=== PATIENT | female | born 1955 | race Caucasian/White ===

== ENCOUNTER → 2018-02-09 | Outpatient (CLI) | payer MEDICARE ==
[~2018-02-09] MED LIST: ALENDRONATE SOD70 MG PO; BIOTIN2500 MCG PO; FOLIC ACID1 MG PO; METHOTREXATE2.5 MG SC; NAPROXEN250 MG PO; NORCO 7.5-3251 EACH PO; NORTRIPTYLINE H25 MG PO; PAROXETINE HCL20 MG PO; PREDNISONE5 MG PO; VITAMIN D400 UNI1 PO
--- NOTE | 2018-02-09 09:58 | Diagnostic Imaging Report ---
PROCEDURE:C-SPINE FLEX AND EXT COMPARISON:None. INDICATIONS:NECK PAIN, LEFT ARM NUMBNESS FINDINGS: The cervical spine is visualized from the skull base to the top of T1 on the lateral radiograph. No acute displaced fracture or subluxation. Soft tissue, ligamentous, and spinal cord abnormalities cannot be excluded on the basis of plain radiography. No inducible malalignment on flexion or extension views. Moderate left C5-6 foraminal narrowing on the oblique radiographs. Disc space narrowing and disc osteophyte complexes at C5-6 and C6-7. Atlantoaxial interval is within normal limits. Prevertebral soft tissues are of normal thickness. CONCLUSION: Degenerative disc changes of the lower cervical spine with suspected moderate left C5-6 foraminal narrowing due to facet arthropathy and disc osteophyte complex. In the setting of left arm numbness, further evaluation with MRI of the cervical spine without contrast may be of benefit. Dictated by: Khadar Arias M.D. on 02/09/2018 at 9:58 Electronically approved by: Khadar Arias M.D. on 02/09/2018 at 9:58
== END ==
LOC: RAD 09:09
PROVIDERS: ATTEND Internal Medicine Rheumatology
DX: M54.2 Cervicalgia (principal); M47.892 Other spondylosis, cervical region; M06.09 Rheumatoid arthritis without rheumatoid factor, multiple sites; M81.0 Age-related osteoporosis without current pathological fracture
CPT/HCPCS: 72052

== ENCOUNTER → 2018-08-08 | Outpatient (CLI) | payer MEDICARE ==
--- NOTE | 2018-08-08 15:23 | Diagnostic Imaging Report ---
History: Left arm and neck numbness Comparison studies: X-ray of the cervical spine 02/09/2018 Technique: Sagittal T1, T2 and IR, axial T2 and axial gradient echo Intravenous contrast: None Findings: Alignment: Mild straightening of the lordosis. No scoliosis. Cervicomedullary junction: No abnormalities. Patent foramen magnum. Soft tissues: No T2 hyperintense inflammatory changes. Spinal cord: Normal in size and signal from the foramen magnum through T4 Vertebrae: Normal in height and signal intensity. No fractures, infection or neoplasm. Degenerative changes: C2-C3: No abnormalities. C3-C4: No abnormalities. C4-C5: No abnormalities C5-C6: Mild disc degeneration with loss of T2 signal. Small central disc osteophyte complex, bilateral uncinate process and facet hypertrophy results in no significant canal stenosis and mild right foraminal narrowing C6-C7: Disc degeneration with loss of T2 signal and decreased intervertebral space. Diffuse disc osteophyte complex, bilateral uncinate process hypertrophy and facet hypertrophy results in mild right and moderate left foraminal narrowing C7-T1: No abnormalities. IMPRESSION: 1. Moderate left foraminal narrowing at C6-7 secondary to left uncinate process hypertrophy and facet hypertrophy. 2. Mild right foraminal narrowing at C5-6 and C6-7. Other mild degenerative changes as described above Signed by: DR Blayne Jane M.D. on 08/08/2018 3:20 PM
== END ==
LOC: MRI 07:40
PROVIDERS: ATTEND Internal Medicine Rheumatology
DX: R20.0 Anesthesia of skin (principal); M54.12 Radiculopathy, cervical region
CPT/HCPCS: 72141

== ENCOUNTER → 2019-12-21 | Day surgery (SDC) | payer MEDICARE ==
[~2019-12-21] MED LIST changes: +ACTEMRA400 MG/20 IV; +CYCLOBENZAPRINE10 MG PO; +PROPOFOL IV EMULSION 10 MG/ML 20 ML VIAL ONE
--- OUTSIDE RECORDS SUMMARY | 2019-12-21 10:26 | XMS REPORT ---
[facility] Address Unknown Phone Unavailable Care Team Providers Care Emergency Operator Name Role Phone JUAN RAMON BLANK Unavailable Unavailable Problems This patient has no known problems. Allergies, Adverse Reactions, Alerts This patient has no known allergies or adverse reactions. Medications This patient has no known medications. Results Test Description Test Time Test Comments Text Results Atomic Results Result Comments MRI SPINE CERVICAL WO 2018-08-08 15:14:00 [place] [address] Patient Name: TRE SPENCE MR #: [id number] : 1955 Age/Sex: 63/F Req #: [id number] Adm Physician: Ordered by: JUAN RAMON BLANK Report #: [id number] Location: MRI Room/Bed: Procedure: [id number] MRI/MRI SPINE CERVICAL WO Exam Date: Exam Time: REPORT STATUS: Signed History: Left arm and neck numbness Comparison studies: X-ray of the cervical spine 02/09/2018 Technique: Sagittal T1, T2 and IR, axial T2 and axial gradient echo Intravenous contrast: None Findings: Alignment: Mild straightening of the lordosis. No scoliosis. Cervicomedullary junction: No abnormalities. Patent foramen magnum. Soft tissues: No T2 hyperintense inflammatory changes. Spinal cord: Normal in size and signal from the foramen magnum through T4 Vertebrae: Normal in height and signal intensity. No fractures, infection or neoplasm. Degenerative changes: C2-C3: No abnormalities. C3-C4: No abnormalities. C4-C5: No abnormalities C5-C6: Mild disc degeneration with loss of T2 signal. Small central disc osteophyte complex, bilateral uncinate process and facet hypertrophy results in no significant canal stenosis and mild right foraminal narrowing C6-C7: Disc degeneration with loss of T2 signal and decreased intervertebral space. Diffuse disc osteophyte complex, bilateral uncinate process hypertrophy and facet hypertrophy results in mild right and moderate left foraminal narrowing C7-T1: No abnormalities. IMPRESSION: 1. Moderate left foraminal narrowing at C6-7 secondary to left uncinate process hypertrophy and facet hypertrophy. 2. Mild right foraminal narrowing at C5-6 and C6-7. Other mild degenerative changes as described above Signed by: DR Blayne Jane M.D. on 08/08/2018 3:20 PM Dictated By: BLAYNE RODRIGUEZ MD [id number] Transcribed By: ELIZABETH on 08/08/18 1520 COPY TO: JUAN RAMON BLANK C-SPINE COMP. W/FLEX EXT [place] [address] Patient Name: TRE SPENCE MR #: [id number] : 1955 Age/Sex: 62/F Req #: [id number] Adm Physician: Ordered by: JUAN RAMON BLANK Report #: [id number] Location: [facility] Room/Bed: Procedure: [id number] DX/C-SPINE COMP. W/FLEX EXT Exam Date: 02/09/18 Exam Time: 929 REPORT STATUS: Signed PROCEDURE: C-SPINE FLEX AND EXT COMPARISON: None. INDICATIONS: NECK PAIN, LEFT ARM NUMBNESS FINDINGS: The cervical spine is visualized from the skull base to the top of T1 on the lateral radiograph. No acute displaced fracture or subluxation. Soft tissue, ligamentous, and spinal cord abnormalities cannot be excluded on the basis of plain radiography. No inducible malalignment on flexion or extension views. Moderate left C5-6 foraminal narrowing on the oblique radiographs. Disc space narrowing and disc osteophyte complexes at C5-6 and C6-7. Atlantoaxial interval is within normal limits. Prevertebral soft tissues are of normal thickness. CONCLUSION: Degenerative disc changes of the lower cervical spine with suspected moderate left C5-6 foraminal narrowing due to facet arthropathy and disc osteophyte complex. In the setting of left arm numbness, further evaluation with MRI of the cervical spine without contrast may be of benefit. Dictated by: Sujata Bergeron M.D. on 02/09/2018 at 9:58 Electronically approved by: Sujata Bergeron M.D. on 02/09/2018 at 9:58 Dictated By: SUJATA BERGERON MD [id number] Transcribed By: JASPER on 02/09/1858 COPY TO: JUAN RAMON BLANK
[2019-12-21 13:50] VITALS: BP 131/76
--- NOTE | 2019-12-21 21:06 | Operative Report ---
DATE OF PROCEDURE: 12/21/2019 SURGEON: Bill Head MD PROCEDURE: EGD with biopsies. INDICATIONS FOR PROCEDURE: Upper abdominal pain. MEDICATIONS: The patient was done under MAC, please see anesthesiologist's note. PROCEDURE IN DETAIL: With the patient in left lateral decubitus position, flexible fiberoptic Olympus gastroscope was introduced into the esophagus under direct visualization without any difficulty. There was some patchy erythema noted in distal esophagus. The scope was then advanced with ease into the stomach traversing a small sliding hiatal hernia. The mucosa overlying the antrum and the body revealed some patchy intense erythema, low-grade to moderate edema, and biopsies were obtained and sent to stain for H pylori. Pylorus was of normal contour and shape, was intubated with ease and the scope was advanced all the way to the second portion of the duodenum. Biopsies were obtained from the proximal second portion and the duodenal bulb to rule out sprue. The scope was then withdrawn back into the stomach and retroflexed mucosa overlying the fundus and cardia appeared to be within normal limits. The scope was then straightened out. It was subsequently withdrawn. The patient tolerated the procedure well. IMPRESSION: 1. Distal esophagitis, mild. 2. Small sliding hiatal hernia. 3. Gastritis, biopsied. Biopsies sent to stain for H pylori. 4. Rule out sprue. PLAN: Follow up histology. Initiate Protonix 40 mg one p.o. q.a.m. a.c. Bill Head MD [facility] [place] /[id number] cc: Bao Frank MD
== END | disposition home or self-care (01) ==
LOC: OR 10:10
PROVIDERS: ATTEND Internal Medicine Gastroenterology
DX: K29.70 Gastritis, unspecified, without bleeding (principal); K29.80 Duodenitis without bleeding; K20.9 Esophagitis, unspecified; K44.9 Diaphragmatic hernia without obstruction or gangrene; K59.00 Constipation, unspecified; M06.9 Rheumatoid arthritis, unspecified; Z88.6 Allergy status to analgesic agent; Z88.0 Allergy status to penicillin; Z88.2 Allergy status to sulfonamides; Z88.1 Allergy status to other antibiotic agents; Z01.810 Encounter for preprocedural cardiovascular examination; Z68.29 Body mass index [BMI] 29.0-29.9, adult
CPT/HCPCS: 43239; 88305; 88312; 93005; J2704

== ENCOUNTER → 2020-06-03 | Outpatient (CLI) | payer MEDICARE ==
[~2020-06-03] MED LIST changes: -PROPOFOL IV EMULSION 10 MG/ML 20 ML VIAL ONE
--- NOTE | 2020-06-03 10:05 | Diagnostic Imaging Report ---
Exam: Lumbar spine AP and lateral History: Back pain Comparison: None. Findings: No fracture or malalignment. Advanced degenerative disc disease L5-S1 with mild facet arthrosis L4-5 L5-S1. Sacroiliac joint degenerative arthrosis. No abnormal soft tissue calcification or soft tissue defect. Impression: No acute osseous abnormality Advanced degenerative disc disease L5-S1 Signed by: Dr. Beka Lee M.D. on 06/03/2020 10:01 AM
== END ==
LOC: RAD 09:36
PROVIDERS: ATTEND Internal Medicine Rheumatology
DX: M06.09 Rheumatoid arthritis without rheumatoid factor, multiple sites (principal); M54.5 Low back pain
CPT/HCPCS: 72100

== ENCOUNTER → 2020-07-09 | Outpatient (CLI) | payer MEDICARE ==
--- NOTE | 2020-07-09 12:25 | Diagnostic Imaging Report ---
EXAMINATION: KNEE 1-2 VIEWS BILATERAL INDICATION: Knee pain COMPARISON: None FINDINGS: AP and lateral views of both knees demonstrate no acute fracture or dislocation. Alignment is anatomic. Mild lateral compartment predominant degenerative changes of the right knee. No substantial degenerative change of the left knee. Small suprapatellar joint effusions of both knees. IMPRESSION: No acute osseous injury. Small suprapatellar joint effusions of both knees. Mild right knee degenerative changes. Signed by: Wilfredo Palumbo MD on 07/09/2020 12:21 PM
== END ==
LOC: RAD 11:24
PROVIDERS: ATTEND Internal Medicine Rheumatology
DX: M25.562 Pain in left knee (principal); M25.561 Pain in right knee; M06.09 Rheumatoid arthritis without rheumatoid factor, multiple sites

== ENCOUNTER → 2021-07-17 | Day surgery (SDC) | payer MEDICARE ==
[~2021-07-17] MED LIST changes: +CALCIUM 1,0001 EACH PO; +LYRICA75 MG PO
[2021-07-17 09:20] VITALS: BP 140/63
== END | disposition home or self-care (01) ==
LOC: OR 06:07
PROVIDERS: ATTEND Internal Medicine Gastroenterology
DX: Z09 Encounter for follow-up examination after completed treatment for conditions other than malignant neoplasm (principal); K57.30 Diverticulosis of large intestine without perforation or abscess without bleeding; K64.8 Other hemorrhoids; M06.9 Rheumatoid arthritis, unspecified; K21.9 Gastro-esophageal reflux disease without esophagitis; K52.9 Noninfective gastroenteritis and colitis, unspecified; Z87.891 Personal history of nicotine dependence; Z86.010 Personal history of colon polyps; Z88.5 Allergy status to narcotic agent; Z88.0 Allergy status to penicillin; Z88.2 Allergy status to sulfonamides; Z88.8 Allergy status to other drugs, medicaments and biological substances; Z01.810 Encounter for preprocedural cardiovascular examination; Z01.812 Encounter for preprocedural laboratory examination; Z20.822 Contact with and (suspected) exposure to COVID-19
CPT/HCPCS: 43235; 93005; U0002; 45378

== ENCOUNTER 2022-05-01 14:09 | Emergency (ER) | payer MEDICARE ==
[~2022-05-01] VITALS: Ht 170.2 cm; Wt 88.5 kg
== END 2022-05-01 17:13 | disposition home or self-care (01) ==
LOC: ER 14:32
DX: R05.9 Cough, unspecified (principal); U07.1 COVID-19; F41.9 Anxiety disorder, unspecified
CPT/HCPCS: 0223U; 36415; 99283